=== PATIENT | male | born 1955 | race Caucasian/White ===

== ENCOUNTER 2021-01-13 09:22 | Day surgery (SDC) | payer OTHER ==
[~2021-01-13] VITALS: Ht 167.6 cm; Wt 80.5 kg
[~2021-01-13 09:22] MED LIST: SODIUM CHLORIDE 0.9% 1,000 ML ONE
[2021-01-13] MEDS ORDERED: ISOS30TA68 PO (09:57)
[2021-01-13] MEDS ORDERED: ASPI-1444 PO (09:57)
[2021-01-13] MEDS ORDERED: SPIR-37 PO (09:57)
[2021-01-13] MEDS ORDERED: ATOR20TA65 PO (09:57)
[2021-01-13] MEDS ORDERED: CARV25TA32 PO (09:57)
[2021-01-13] MEDS ORDERED: FAMO20 PO (09:57)
[2021-01-13] MEDS ORDERED: ASPIRIN 81 MG CHEWABLE TABLET PO ONE (10:00)
[2021-01-13] MEDS ORDERED: DiphenhydrAMINE HCL 50 MG CAPSULE PO ONE (10:00)
[2021-01-13] MEDS ORDERED: SODIUM CHLORIDE 0.9% 1,000 ML IV ONE (10:00)
[2021-01-13] MEDS ORDERED: DIAZEPAM 5 MG TABLET PO ONE (10:00)
[2021-01-13] MEDS ORDERED: ASPIRIN 325 MG TABLET ONE (10:20)
[2021-01-13] MEDS ORDERED: DIAZEPAM 5 MG TABLET ONE (10:20)
[2021-01-13] MEDS ORDERED: DiphenhydrAMINE HCL 50 MG CAPSULE ONE (10:21)
[2021-01-13 10:24] LABS: GLUCOMETER DEV NAME(LOC) SDS.; GLUCOSE,POINT OF CARE 111 MG/DL (70-110)
[2021-01-13] MEDS ORDERED: ASPIRIN 81 MG CHEWABLE TABLET ONE (10:38)
[2021-01-13] MEDS ORDERED: IOHEXOL 300 MG/ML 150 ML VIAL ONE (11:45)
[2021-01-13] MEDS ORDERED: IOHEXOL 300 MG/ML 50 ML VIAL ONE (11:45)
[2021-01-13] MEDS ORDERED: SODIUM BICARBONATE 50 MEQ/50 ML VIAL ONE (11:45)
[2021-01-13] MEDS ORDERED: LIDOCAINE/PF 1% 30 ML VIAL ONE (11:45)
[2021-01-13] MEDS ORDERED: HEPARIN SODIUM 1000 UNITS/NS 1,000 ML ONE (11:45)
[2021-01-13] MEDS ORDERED: IOHEXOL 300 MG/ML 100 ML VIAL ONE (11:45)
[2021-01-13 12:11] VITALS: BP 168/93
[2021-01-13] MEDS ORDERED: FentaNYL CITRATE PF 100 MCG/2 ML VIAL ONE (12:11)
[2021-01-13] MEDS ORDERED: MIDAZOLAM HCL 2 MG/2 ML VIAL ONE (12:11)
[2021-01-13] MEDS ORDERED: CLOP75TA32 PO (12:18)
[2021-01-13] MEDS ORDERED: FLUT16H NASAL (12:18)
[2021-01-13] MEDS ORDERED: ERTU5TAB PO (12:18)
[2021-01-13] MEDS ORDERED: SACU1TAB4 PO (12:18)
[2021-01-13] MEDS ORDERED: NITR0.4T52 SL (12:18)
[2021-01-13] MEDS ORDERED: FURO40TA5 PO (12:18)
[2021-01-13] MEDS ORDERED: IOHEXOL 300 MG/ML 150 ML VIAL IARTER ONE (12:45)
[2021-01-13] MEDS ORDERED: LIDOCAINE 1% 30 ML/SOD BICARB 8.4% 4 ML SQ ONE (12:45)
[2021-01-13] MEDS ORDERED: SODIUM CHLORIDE 0.9% 500 ML IV ONE (12:45)
[2021-01-13] MEDS ORDERED: MIDAZOLAM HCL 2 MG/2 ML VIAL IVP ONE ×4 (12:45→13:00)
[2021-01-13] MEDS ORDERED: FentaNYL CITRATE PF 100 MCG/2 ML VIAL IVP ONE ×4 (12:45→13:00)
[2021-01-13] MEDS ORDERED: HEPARIN SODIUM 1000 UNITS/NS 1,000 ML IARTER ONE (12:45)
== END 2021-01-13 17:30 | disposition home or self-care (01) ==
LOC: CATHLAB 09:22
PROVIDERS: ATTEND Internal Medicine Interventional Cardiology
DX: I42.9 Cardiomyopathy, unspecified (principal); E11.22 Type 2 diabetes mellitus with diabetic chronic kidney disease; I13.0 Hypertensive heart and chronic kidney disease with heart failure and stage 1 through stage 4 chronic kidney disease, or unspecified chronic kidney disease; N18.4 Chronic kidney disease, stage 4 (severe); I50.20 Unspecified systolic (congestive) heart failure; N17.9 Acute kidney failure, unspecified; E78.5 Hyperlipidemia, unspecified; Z79.02 Long term (current) use of antithrombotics/antiplatelets; Z79.82 Long term (current) use of aspirin; Z79.899 Other long term (current) drug therapy
CPT/HCPCS: 82962; 93005; 93458; 99152; C1760; J1644; J2250; J3010; J3490 ×2; J7030; Q9967